=== PATIENT | male | born 1965 | race Two or more races ===

== ENCOUNTER 2024-01-13 11:48 | Inpatient (IN) | payer OTHER ==
[2024-01-13 12:31] VITALS: BMI 27.3
[2024-01-13] MEDS ORDERED: methaDONE HCL 10 MG TABLET PO ONE (15:25)
[2024-01-13] MEDS ORDERED: MAG HYDROX/AL HYDROX/SIMETH 30 ML UNIT-DOSE CUP PO PRN (15:36)
[2024-01-13] MEDS ORDERED: LOPERAMIDE HCL 2 MG CAPSULE PO PRN (15:36)
[2024-01-13] MEDS ORDERED: BENZOCAINE/MENTHOL (CHLORASEPTIC ) LOZENGE MM PRN (15:36)
[2024-01-13] MEDS ORDERED: NICOTINE POLACRILEX 2 MG GUM BUC PRN (15:36)
[2024-01-13] MEDS ORDERED: BENZONATATE 200 MG CAPSULE PO PRN (15:36)
[2024-01-13] MEDS ORDERED: hydrOXYzine PAMOATE 25 MG CAPSULE (FP) PO PRN (15:36)
[2024-01-13] MEDS ORDERED: NALOXONE HCL (KLOXXADO) 8 MG SPRAY NS PRN (15:36)
[2024-01-13] MEDS ORDERED: NALOXONE HCL 0.4 MG/ML VIAL IM PRN (15:36)
[2024-01-13] MEDS ORDERED: MAGNESIUM HYDROX 2400MG/30ML ORAL SUSPENSION 30 ML CUP PO PRN (15:36)
[2024-01-13] MEDS ORDERED: POLYETHYLENE GLYCOL (HEALTHYLAX) 3350 17 GM PACKET PO PRN (15:36)
[2024-01-13] MEDS ORDERED: guaiFENesin 600 MG TABLET.ER (FP) PO PRN (15:36)
[2024-01-13] MEDS ORDERED: PATIENT'S OWN MEDICATION (NON-FORMULARY) (Acetaminophen [Acetaminophen] 325 MG Capsule) PO PRN (16:15)
[2024-01-13] MEDS ORDERED: methaDONE HCL 10 MG TABLET (FOR DETOX USE ONLY) ONE (16:23)
[2024-01-13] MEDS: ACETAMINOPHEN 500 MG TABLET (FP) PO ONE (16:42)
[2024-01-13] MEDS: methaDONE 40 MG, methaDONE 10 MG PO ONE (16:42)
[2024-01-13] MEDS: INSULIN ASPART SLIDING SCALE (NOVOLOG) 1 VIAL SQ SCH (16:52)
[2024-01-13] MEDS: PRENATAL VITAMINS W/ FOLIC ACID TABLET (FP) PO SCH (19:24)
[2024-01-13] MEDS: NICOTINE 14 MG/24 HOURS TOPICAL PATCH TD SCH (19:24)
[2024-01-13] MEDS: THIAMINE HCL 100 MG TABLET (FP) PO SCH (21:20)
[2024-01-13] MEDS: MELATONIN 5 MG TABLETS PO SCH (21:20)
[2024-01-13] MEDS: ACETAMINOPHEN 325 MG TABLET (FP) PO PRN (21:21)
[2024-01-13] MEDS ORDERED: TUBERCULIN PPD 5 TU/0.1ML VIAL ID ONE (21:52)
[2024-01-13] MEDS ORDERED: BACLOFEN 10 MG TABLET (FP) PO SCH (22:00)
[2024-01-14] MEDS: ONDANSETRON *ODT* 4 MG TABLET SL ONE (04:02)
[2024-01-14] MEDS: methaDONE 40 MG, methaDONE 10 MG PO SCH (07:34)
[2024-01-14] MEDS: methaDONE HCL 10 MG TABLET PO SCH (08:05)
[2024-01-14 08:10] LABS: URINE APPEARANCE CLEAR; URINE BILIRUBIN 1+ (NEGATIVE); URINE COLOR DK YELLOW; URINE GLUCOSE (UA) NEGATIVE (NEGATIVE); URINE KETONE TRACE (NEGATIVE); URINE LEUK ESTERASE NEGATIVE (NEGATIVE); URINE NITRITE NEGATIVE (NEGATIVE); URINE PROTEIN TRACE (NEGATIVE)
[2024-01-14] MEDS ORDERED: BISMUTH SUBSALICYLATE 524 MG/30 ML PO PRN (08:20)
[2024-01-14] MEDS ORDERED: ONDANSETRON *ODT* 4 MG TABLET SL PRN (08:20)
[2024-01-14] MEDS ORDERED: IBUPROFEN 400 MG TABLET (FP) PO PRN (08:20)
[2024-01-14] MEDS ORDERED: DICYCLOMINE HCL 10 MG CAPSULE PO PRN (08:20)
[2024-01-14 09:02] VITALS: TEMP 96.8
[2024-01-14] MEDS: LISINOPRIL 20 MG TABLET PO SCH (09:59)
[2024-01-14] MEDS: METHOCARBAMOL 500 MG TABLET PO PRN (10:00)
[2024-01-14] MEDS: IBUPROFEN 600 MG TABLET (FP) PO PRN (10:00)
[2024-01-14 10:44] VITALS: BP 163/83; PULSE 61; RESP 17
[2024-01-14] MEDS: methaDONE HCL 10 MG TABLET PO ONE (13:22)
[2024-01-14] MEDS ORDERED: INSULIN ASPART SLIDING SCALE (NOVOLOG) 1 VIAL SQ SCH (16:30)
[2024-01-15] MEDS ORDERED: methaDONE 40 MG, methaDONE 20 MG PO SCH (06:00)
[2024-01-15] MEDS ORDERED: methaDONE HCL 10 MG TABLET PO SCH (06:00)
== END 2024-01-14 13:15 | disposition left against medical advice (07) | DRG 770 ==
LOC: YASAS 11:48 → Y3E 18:34
PROVIDERS: ADMIT Allergy & Immunology; ATTEND Psychiatry & Neurology Pain Medicine
PROC: HZ42ZZZ Group Counseling for Substance Abuse Treatment, Cognitive-Behavioral (ICD-10-PCS; principal; 2024-01-13)
DX: F11.20 Opioid dependence, uncomplicated (principal); F14.20 Cocaine dependence, uncomplicated; F12.20 Cannabis dependence, uncomplicated; F17.210 Nicotine dependence, cigarettes, uncomplicated; C64.9 Malignant neoplasm of unspecified kidney, except renal pelvis; C78.7 Secondary malignant neoplasm of liver and intrahepatic bile duct; I10 Essential (primary) hypertension; E11.9 Type 2 diabetes mellitus without complications; B18.2 Chronic viral hepatitis C; Z59.01 Sheltered homelessness
CPT/HCPCS: 80305; 81003; 82962; 87635; 87811; 93005; 93010; Q0162